=== PATIENT | female | born 1990 | race American Indian/Alaskan Native ===

== ENCOUNTER 2017-07-24 18:38 | Emergency (ER) | payer OTHER, MEDICAID ==
[2017-07-24 19:01] VITALS: BP 119/78
[2017-07-24] MEDS ORDERED: TYLENOL PO ONE (21:20)
[2017-07-24 21:23] LABS: Basophils % (Auto) 0.6 % (0.0-1.8); Eosinophils % (Auto) 2.4 % (0.0-4.3); Hematocrit 36.3 % (30.3-42.9); Hemoglobin 12.9 gm/dl (10.1-14.3); Mean Corpuscular HGB Conc 36 % (30-34); Mean Corpuscular Hemoglobin 33 pg (28-32); Mean Corpuscular Volume 92 fl (79-97); Platelet Count 217 K/mm3 (140-440); Red Blood Count 3.95 M/mm3 (3.65-5.03); Red Cell Distribution Width 12.8 % (13.2-15.2); White Blood Count 9.9 K/mm3 (4.5-11.0)
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
[2017-07-24 21:34] LABS: Anion Gap 17 mmol/L; BUN/Creatinine Ratio 15; Blood Urea Nitrogen 6 mg/dL (7-17); Calcium 8.7 mg/dL (8.4-10.2); Carbon Dioxide 23 mmol/L (22-30); Chloride 100.9 mmol/L (98-107); Glucose 91 mg/dL (65-100); Sodium 137 mmol/L (137-145)
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
== END 2017-07-24 22:52 | disposition home or self-care (01) ==
LOC: ED 18:38
DX: O26.892 Other specified pregnancy related conditions, second trimester (principal); R51 Headache; V89.2XXA Person injured in unspecified motor-vehicle accident, traffic, initial encounter; Y93.9 Activity, unspecified; Y99.9 Unspecified external cause status; Y92.410 Unspecified street and highway as the place of occurrence of the external cause
CPT/HCPCS: 36415; 76805; 76817; 80048; 84702; 85025